=== PATIENT | male | born 1990 | race Caucasian/White ===

== ENCOUNTER 2018-09-16 15:10 | Emergency (ER) | payer MEDICAID ==
[2018-09-16 15:33] VITALS: RESP 18
--- NOTE | 2018-09-16 16:19 | ED PDOC ---
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 Patient reports pain occurs when he is working. 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 Denies shortness of breath, trauma, or recent travel. He states he took medications 6 months ago but doesn't remember the name. PMD: none Past Medical History Reviewed: Historical Data, Nursing Documentation, Vital Signs Vital Signs: Last Vital Signs Temp 98.1 F 09/16/18 15:30 Pulse 69 09/16/18 15:30 Resp 18 09/16/18 15:30 BP 129/83 09/16/18 15:30 Pulse Ox 98 09/16/18 15:30 - Medical History PMH: No Chronic Diseases - Surgical History Surgical History: No Surg Hx - Family History Family History: States: Unknown Family Hx - Social History Current smoker - smoking cessation education provided: No (Quit smoking 2 weeks ago) - Home Medications Home Medications: Ambulatory Orders Medication Instructions Recorded Naproxen [Naprosyn] 500 mg PO BID PRN #15 tablet 09/16/18 - Allergies Allergies/Adverse Reactions: Allergies Allergy/AdvReac Type Severity Reaction Status Date / Time No Known Allergies Allergy Verified 09/16/18 16:16 Review of Systems ROS Statement: Except As Marked, All Systems Reviewed And Found Negative Cardiovascular: Positive for: Chest Pain (right sided) Respiratory: Negative for: Shortness of Breath Musculoskeletal: Negative for: Other (trauma) Physical Exam - Reviewed Nursing Documentation Reviewed: Yes Vital Signs Reviewed: Yes - Physical Exam Appears: Positive for: Non-toxic, No Acute Distress Head Exam: Positive for: ATRAUMATIC, NORMOCEPHALIC Skin: Positive for: Normal Color, Warm, Dry Eye Exam: Positive for: Normal appearance Neck: Positive for: Normal, Painless ROM Cardiovascular/Chest: Positive for: Other (Right upper lateral chest tenderness to palpation. No erythema, induration, or rashes). Negative for: Chest Non Tender Respiratory: Positive for: Normal Breath Sounds Gastrointestinal/Abdominal: Positive for: Normal Exam, Soft. Negative for: Tenderness Extremity: Positive for: Normal ROM Neurologic/Psych: Positive for: Alert, Oriented. Negative for: Motor/Sensory Deficits - Laboratory Results Result Diagrams: 09/16/18 16:30 09/16/18 16:30 - ECG O2 Sat by Pulse Oximetry: 98 (RA) Pulse Ox Interpretation: Normal Medical Decision Making Medical Decision Making: Initial Impression: Right sided chest pain Initial Plan: --ECG --CMP --CBC --D Dimer --PTT --Prothrombin time --Chest X-ray --Motrin 600mg PO --- Scribe Attestation: Documented by Constantine Stephens acting as a scribe for Rosy Pedro MD. Provider Scribe Attestation: All medical record entries made by the Scribe were at my direction and personally dictated by me. I have reviewed the chart and agree that the record accurately reflects my personal performance of the history, physical exam, medical decision making, and the department course for this patient. I have also personally directed, reviewed, and agree with the discharge instructions and disposition. Disposition - Clinical Impression Clinical Impression: Right-sided chest pain - Disposition Referrals: [facility] [Outside] Disposition Time: 19:57 Condition: STABLE Prescriptions: Naproxen [Naprosyn] 500 mg PO BID PRN #15 tablet PRN Reason: Pain, Moderate (4-7) Instructions: Chest Pain Forms: [employer] ([place])
[2018-09-16 16:40] LABS: BASO # 0.1 K/uL (0.0-0.2); BASO % 1.3 % (0.0-2.0); EOS # 0.6 K/uL (0.0-0.7); EOS % 12.8 % (0.0-4.0); HEMOGLOBIN 14.5 g/dL (12.0-18.0); LYMPH % 39.2 % (20.0-40.0); MEAN CELL VOLUME 86.3 fl (80.0-94.0); MEAN CORPUSCULAR HEMOGLOBIN 29.1 pg (27.0-31.0); MEAN CORPUSCULAR HGB CONC 33.8 g/dL (33.0-37.0); MEAN PLATELET VOLUME 8.5 fl (7.2-11.7); MONO # 0.5 K/uL (0.0-0.8); MONO % 10.5 % (0.0-10.0); NEUT # 1.8 K/uL (1.8-7.0); NEUT % 36.2 % (50.0-75.0); RBC 4.98 Mil/uL (4.40-5.90); RED CELL DISTRIBUTION WIDTH 13.5 % (11.5-14.5)
[2018-09-16 16:51] LABS: ALB/GLOB RATIO 1.5 (1.0-2.1); ALT/SGPT 50 U/L (21-72); AST/SGOT 36 U/L (17-59); BLOOD UREA NITROGEN 17 mg/dl (9-20); CALCIUM 9.6 mg/dL (8.4-10.2); GFR NON-AFRICAN AMERICAN > 60
--- NOTE | 2018-09-16 16:53 | RAD ---
Date of service: 09/16/2018 HISTORY: Right-sided chest pain COMPARISON: No prior. TECHNIQUE: Chest PA and lateral FINDINGS: LUNGS: No active pulmonary disease. PLEURA: No significant pleural effusion identified. No pneumothorax apparent. CARDIOVASCULAR: No aortic atherosclerotic calcification present. Normal cardiac size. No pulmonary vascular congestion. OSSEOUS STRUCTURES: No significant abnormalities. VISUALIZED UPPER ABDOMEN: Normal. OTHER FINDINGS: None. IMPRESSION: No active disease.
[2018-09-16 17:38] LABS: INR 1.1
[2018-09-16 18:53] LABS: PARTIAL THROMBOPLASTIN TIME 33.8 Seconds (25.6-37.1)
[2018-09-16] MEDS ORDERED: Iodixanol 320 MG/ML 100 ML BOTTLE IV ONE (19:11)
[2018-09-16] MEDS ORDERED: Sodium Chloride 0.9% 50 ML IV ONE (19:11)
[2018-09-16 22:39] VITALS: BP 131/70; PULSE 72; TEMP 98.6
--- NOTE | 2018-09-17 08:03 | CARD ---
APPROVED REPORT Date of service: 09/16/2018 EKG Measurement Heart [id number] <Conclusion> Normal sinus rhythm with sinus arrhythmia Incomplete right bundle branch block Borderline ECG
--- NOTE | 2018-09-17 09:04 | CT ---
Date of service: 09/16/2018 PROCEDURE: CT Chest with contrast (Pulmonary Angiogram) HISTORY: R sided CP COMPARISON: Chest x-ray performed earlier same day TECHNIQUE: Axial computed tomography images were obtained of the chest in the pulmonary arterial phase of enhancement. Coronal and sagittal reformatted images were created and reviewed. Intravenous contrast dose: 75 cc Visipaque 320 IV contrast Radiation dose: Total exam DLP = 286.98 mGy-cm. This CT exam was performed using one or more of the following dose reduction techniques: Automated exposure control, adjustment of the mA and/or kV according to patient size, and/or use of iterative reconstruction technique. FINDINGS: PULMONARY ARTERIES: Main pulmonary artery is mildly enlarged with respect to the aorta. Right and left main pulmonary arteries appear normal in caliber. No pulmonary embolus identified to the level of the segmental vessels. AORTA: Thoracic aorta is normal in caliber. No aortic atherosclerotic calcification or mural plaque present. LUNGS: Mild bulous changes noted at the right lung apex. No focal consolidation is seen. The trachea and major segmental bronchi are patent. PLEURAL SPACES: No pleural effusion is identified. HEART: Heart size is within normal limits. No significant pericardial effusion seen. LYMPH NODES: There is no significant axillary, mediastinal, or hilar lymphadenopathy. BONES, CHEST WALL: No acute fracture identified. OTHER FINDINGS: Visualized portions of the upper abdomen demonstrate moderate volume of stool throughout the visualized large bowel. Remainder of the visualized upper abdominal viscera are grossly unremarkable. IMPRESSION: No pulmonary embolus identified to the level of the segmental vessels. Main pulmonary artery is mildly enlarged with respect to the aorta. Consider pulmonary arterial hypertension. Additional findings as above. Preliminary impression was provided by the Teleradiology service. Findings are concordant.
[2018-09-23 09:38] VITALS: O2SAT 98
== END 2018-09-16 20:05 | disposition home or self-care (01) ==
LOC: H.ER 15:10
DX: Z87.891 Personal history of nicotine dependence (principal)
CPT/HCPCS: 71046; 71275; 80053; 85025; 85378; 85610; 85730; 93005; 99284; Q9967